=== PATIENT | male | born 1960 | race Caucasian/White ===

== ENCOUNTER 2025-06-13 07:43 | Outpatient (RCR) | payer OTHER, SELFPAY ==
--- NOTE | 2025-06-04 15:47 | CTCCONSULT_ITS ---
[facility] [address] [place], [place] [address] Consultation Note Date: 06/04/2025 MR#: [id number] Name: CARMITA RENTERIA : 1960 Dx: Malignant neoplasm of skin over face. C44.3 Referred by. [facility] Reason for consultation. Patient with basal CA right infraorbital region. History of Present Illness: Patient is a 65-year-old gentleman who had a biopsy of right infraorbital cheek at the [facility] February 20, 2025 diagnosis basal cell CA nodular and multinodular type transected. Various options were described and patient opted for radiation. Past Medical History: Hypertension diabetes type 2 Medications. 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 Social drinker non-smoker. Physical Exam: General: HEENT: Tiny 3 x 5 mm blister in the lower eyelid site of prior biopsy Assessment: T1 sized basal cell CA biopsy only done left lower lid. Plan: Approximately 4000 to 5000 cGy in 250 cGy per fraction with appropriate eye shielding will be delivered. Side effects explained. Thank you much for allowing me to evaluate and manage this patient Cc: [facility] Electronically signed by: Blair Lamas MD, CINDY 06/04/2025 3:45 PM
--- NOTE | 2025-06-04 15:51 | CTCTXPLN_ITS ---
[facility] [address] [place], [place] [address] Physician Clinical Treatment Planning Note Date of Service: 06/04/2025 Name: CARMITA RENTERIA D.O.B.: 1960 The patient has agreed to proceed with Radiation therapy. Tests and supporting medical records were interpreted to assist in defining the tumor location and extent of disease. Further imaging will be necessary to contour and delineate the volume to which the XRT will be provided. A. Treatment Intent: Curative B. Modality: 6 M electrons eV C. Requested Technique: D. Treatment Site: Right lower lid E. Critical structures to be contoured on plan: F. In order to accomplish this plan, I am ordering/Prescribing the followin. Simulations (s) will be performed to accomplish a reproducible treatment position, to determine optimal treatment portals/beam arrangements, to design beam modifying devices and verify treatment portals on patient prior to the commencement of Radiation Therapy. 2. Devices; for immobilization and beam shapin. CT Guidance for placement of XRT sosa Scan area: 4. Portal images Frequency: 5. Invivo transit dose measurement once per week on all VMAT patients. 6. Special Physics Consult Requested for: 7. Other requests: G. Dose Objectives: Electronically signed by: Blair Lamas M.D. 06/04/2025 3:48 PM
--- NOTE | 2025-06-04 15:54 | CTCTXPLNST_ITS ---
Radiation Oncology Treatment Planning Sheet Name: CARMITA RENTERIA MR#: [id number] : 1960 Dx: C44.300 Unspecified malignant neoplasm of skin of unspecified part of face Date of Service: 06/04/2025 Account #: ?? Pt Treatment Intent: curative palliative other: Stage: Procedure CPT # Ordered Spec. Procedure 67831 June Complex (set-up) 45442 R lower lid 1 June Simple 28037 IMRT Plan 00776 MLC Devices VMAT 86190 June 3 D 72124 TRTMT dev Complex 56844 B Eyeshieds.head rest 2 TRTMT dev simple 74065 1 cm bolus 1` Basic Ronald 66246 1 Special Dosimetry 43312 Spec Physics 18770 Port Films 46719 SRS Cranial/1FX 57554 SBR 5 FX or Less /ex: 5 = 5 fx 57706 IMRT Simple 26568 IMRT Complex 82281 IGRT 35401 Rad del Get Fractal 6-10 07343 5000 20 Rad del Get Fractal 11- 05227 Cont Med Physics 86866 4 Treatment Planning 20724 1 Weekly Evaluation 31654 4 Rad del com 20 mev 39335 Special Port Plan 55075 TRTMT dev inter 60712 Isodose Complex 38995 Isodose simple 30471 Resp Motion Mgmt Simulation 65959 Placement of Fiducial Markers 06424 Electronically Signed By: Blair Lamas MD, AUDIER 06/04/2025 3:52 PM
== END 2025-06-15 23:59 | disposition home or self-care (01) ==
LOC: SCTC 07:43
PROVIDERS: PCP Family Medicine; Referring Provider Radiology Therapeutic Radiology; Visit Provider Radiology Therapeutic Radiology
DX: Z51.0 Encounter for antineoplastic radiation therapy (principal); C44.1122 Basal cell carcinoma of skin of right lower eyelid, including canthus
CPT/HCPCS: 77290; 77300; 77332; 77412; 99213; G0463

== ENCOUNTER 2025-07-07 07:44 | Outpatient (RCR) | payer OTHER, SELFPAY ==
--- NOTE | 2025-06-17 10:28 | CTCTRTNOTE_ITS ---
[facility] [address] [place], [place] [address] Weekly Management Date: 06/17/2025 ?? Name: CARMITA MYRA Hill.: 1960 A. Patient is currently at 850 cGy. B. Patient is tolerating treatment well. C. Minimal skin effects.. D. Resume radiation therapy. Electronically signed by: Blair Lamas M.D. 06/17/2025 10:26 AM
== END 2025-07-15 23:59 | disposition home or self-care (01) ==
LOC: SCTC 07:44
PROVIDERS: PCP Family Medicine; Referring Provider Family Medicine; Visit Provider Radiology Therapeutic Radiology
DX: Z51.0 Encounter for antineoplastic radiation therapy (principal); C44.319 Basal cell carcinoma of skin of other parts of face; L59.8 Other specified disorders of the skin and subcutaneous tissue related to radiation; Y84.2 Radiological procedure and radiotherapy as the cause of abnormal reaction of the patient, or of later complication, without mention of misadventure at the time of the procedure
CPT/HCPCS: 77336; 77412